=== PATIENT | male | born 1990 | race African-American/Black ===

== ENCOUNTER 2023-02-20 20:03 | Emergency (ER) | payer SELFPAY ==
[2023-02-20] MEDS ORDERED: Acetaminophen/Butalbital/Caffeine 325-50-40 MG Tab PO ONE (20:31)
[2023-02-20 21:46] LABS: CORONAVIRUS COVID-19 NAA NEGATIVE (NEGATIVE)
== END 2023-02-20 22:20 | disposition home or self-care (01) ==
LOC: JD.ED 20:03
DX: R07.89 Other chest pain (principal); G44.209 Tension-type headache, unspecified, not intractable; I10 Essential (primary) hypertension; Z87.891 Personal history of nicotine dependence; Z20.822 Contact with and (suspected) exposure to COVID-19
CPT/HCPCS: 0241U; 36415; 71046; 80053; 83880; 84484; 85025; 85379; 85610; 85730; 93005; 99285; A9270; 93010; 99283